=== PATIENT | female | born 1960 | race Caucasian/White ===

== ENCOUNTER 2016-04-16 05:20 | Day surgery (SDC) | payer OTHER ==
[2016-04-15 12:13] VITALS: BMI 33.5
[2016-04-16] MEDS ORDERED: PROPOFOL 20 ML ONE ×2 (09:03)
[2016-04-16] MEDS ORDERED: MIDAZOLAM HCL 2 MG/2 ML SINGLE DOSE VIAL ONE (09:03)
[2016-04-16] MEDS ORDERED: METRONIDAZOLE 500 MG PREMIXED 100 ML IVPB ONE (09:24)
[2016-04-16] MEDS ORDERED: METRONIDAZOLE 500 MG PREMIXED 500 MG/100 ML MG IVPB ONE (09:31)
--- NOTE | 2016-04-16 09:38 | HP ---
History & Physical Update - History History: No Change - Physical Physical: No Change - Assessment Assessment: No Change - Plan Plan: No Change
[2016-04-16] MEDS ORDERED: ONDANSETRON 4 MG/2 ML VIAL ONE (10:00)
[2016-04-16] MEDS ORDERED: DEXAMETHASONE SOD PHOSPHATE 4 MG/1 ML VIAL ONE (10:00)
[2016-04-16] MEDS ORDERED: KETOROLAC TROMETHAMINE 30 MG/1 ML VIAL IVPUSH ONE (10:27)
[2016-04-16] MEDS ORDERED: oxyCODONE HCL 5 MG TABLET PO PRN (10:27)
[2016-04-16] MEDS ORDERED: ONDANSETRON 4 MG/2 ML VIAL IVPUSH PRN (10:27)
[2016-04-16] MEDS ORDERED: LACTATED RINGERS SOLUTION 1,000 ML IV SCH (10:30)
[2016-04-16] MEDS ORDERED: IBUPROFEN 600 MG TABLET (FP) PO PRN (10:46)
[2016-04-16] MEDS ORDERED: IBUPROFEN 800 MG/8 ML IJ IVPB PRN (10:46)
[2016-04-16] MEDS ORDERED: ONDANSETRON 4 MG/2 ML VIAL IVPB PRN (10:46)
--- NOTE | 2016-04-16 10:46 | OP ---
Operative Note - Note: Operative Date: 04/16/16 Pre-Operative Diagnosis: 55 yo P2 with Postmenopausal bleeding, Thick endometrium Operation: Hysteroscopy/Polypectomy Findings: Uterus ~ 6cm, nl Adnexa bl, Anterior wall polyp ~ 1.5cm, and .7cm low uterine segment, anterior wall, both removed Post-Operative Diagnosis: Other Surgeon: Olivia Garcia Anesthesiologist/FOLDER STITCHER OPERATOR: Alexx Rondon Anesthesia: MAC Specimens Removed: 1.Endometrial polyp. 2.Endometrial polyp. 3.Endometrial curretings Estimated Blood Loss (mls): 20 Drains & Tubes with Location: Fluid deficit 0cc Drains, Volume Out (mls): 50 Fluid Volume Replaced (mls): 900 Operative Report Dictated: Yes
[2016-04-16 10:52] VITALS: TEMP 97.4
[2016-04-16] MEDS ORDERED: ELECTROLYTE-148 SOLN 1,000 ML IV SCH (11:00)
[2016-04-16] MEDS ORDERED: KETOROLAC TROMETHAMINE 30 MG/1 ML VIAL ONE (11:07)
[2016-04-16 13:00] VITALS: BP 116/70; PULSE 73
--- NOTE | 2016-04-17 00:23 | OP ---
DATE OF OPERATION: 04/16/2016 PREOPERATIVE DIAGNOSIS: A 55-year-old para 2 with postmenopausal bleeding, thick endometrium. SURGERY: Hysteroscopy, polypectomy, dilation and curettage. FINDINGS: Uterus approximately 6 cm, normal adnexa bilaterally, anterior wall polyp approximately 1.5 cm, and also 0.7 cm lower uterine segment polyp on the anterior wall. Both polyps removed. POSTOPERATIVE DIAGNOSIS: Uterus approximately 6 cm, normal adnexa bilaterally, anterior wall polyp approximately 1.5 cm, and also 0.7 cm lower uterine segment polyp on the anterior wall. Both polyps removed. SURGEON: Olivia Garcia MD ANESTHESIOLOGIST: Alexx Rondon MD ANESTHESIA: MAC. SPECIMENS REMOVED: 1. Endometrial polyp. 2. Endometrial polyp. 3. Endometrial curettings. ESTIMATED BLOOD LOSS: 20 mL. FLUID DEFICIT: Zero. URINE OUTPUT: 50 mL. VOLUME REPLACED: 900 mL. DESCRIPTION OF OPERATIVE PROCEDURE: After ensuring informed consent, the patient was taken to the operating room where she underwent general sedation without difficulty. SCD devices were placed and turned on. She was placed in the dorsal lithotomy position using Vinh stirrups. She was examined and had the above noted findings. Prepped and draped in the usual sterile fashion. Bladder was drained with a red straight catheter. The Morillo speculum was inserted into the vagina. Single-toothed tenaculum was used to grasp the anterior cervical lip. The endocervical canal was serially dilated with Arriaza dilators to gauge 19 to accommodate 5-mm hysteroscope, which was inserted without difficulty, with the above findings. Visualization was achieved using sterile saline as a distention medium. The hysteroscope was removed and polyp forceps were used to remove both polyps. Subsequently, sharp curettage was performed. The tissue was sent to pathology. Hysteroscope was reinserted and revealed no evidence of perforation. All instruments were removed. Hemostasis was observed at the cervical site. The patient was repositioned to the supine position, extubated, and taken to the recovery room in stable condition. Crissy [id number]
--- NOTE | 2016-04-17 10:49 | PATH ---
Surgical Pathology Report Patient Name: DONTRELL REDD [facility]. Rec. #: [id number] /Age/Gender: 1960 (Age: 55) / F Account: [id number] Location: [facility] SURGICAL Taken: 04/16/2016 Received: 04/16/2016 Reported: 04/17/2016 Physicians: Olivia Garcia M.D. Specimen(s) Received A: UTERINE POLYP B: ENDOMETRIAL CURETTINGS C: UTERINE POLYP #2 Clinical History Postmenopausal bleeding Final Diagnosis A. ENDOMETRIUM, POLYPECTOMY: BENIGN ENDOMETRIAL POLYP. INACTIVE TO ATROPHIC ENDOMETRIUM PRESENT IN THE BACKGROUND. NO ENDOMETRIAL HYPERPLASIA OR CARCINOMA IDENTIFIED. B. ENDOMETRIUM, CURETTING: INACTIVE TO ATROPHIC ENDOMETRIUM, AND BENIGN CERVICAL TISSUE. NO ENDOMETRIAL HYPERPLASIA OR CARCINOMA IDENTIFIED. C. ENDOMETRIUM, POLYP #2, POLYPECTOMY: BENIGN ENDOMETRIAL POLYP. NO ENDOMETRIAL HYPERPLASIA OR CARCINOMA IDENTIFIED. Comment: Also see prior specimen [id number]. Electronically Signed Jordon Dahl M.D. Gross Description A. Received in formalin, labeled "uterine polyp," are 2 desir-red, irregular to polypoid portions of soft tissue measuring 0.6 x 0.4 x 0.2 cm and 1.5 x 1.0 x 0.3 cm. The specimens are submitted in toto in one cassette. B. Received in formalin, labeled "endometrial curetting," is a 2.4 x 2.0 x 0.3 cm aggregate of desir-red soft tissue fragments admixed with blood clot. The formalin is filtered and the specimen is entirely submitted in one cassette. C. Received in formalin, labeled "uterine polyps #2," is a 1.3 x 1.0 x 0.3 cm aggregate of desir soft tissue fragments admixed with blood clot. The formalin is filtered and the specimen is entirely submitted in one cassette. DL04/16/2016 saudi04/16/2016
== END 2016-04-16 13:03 | disposition home or self-care (01) ==
LOC: JASU-SURG 05:20
PROVIDERS: ATTEND Obstetrics & Gynecology
PROC: 0UB98ZX Excision of Uterus, Via Natural or Artificial Opening Endoscopic, Diagnostic (ICD-10-PCS; principal; 2016-04-16 09:00)
PROC: 0UDB8ZZ Extraction of Endometrium, Via Natural or Artificial Opening Endoscopic (ICD-10-PCS; 2016-04-16 09:00)
DX: N95.0 Postmenopausal bleeding (principal); N84.0 Polyp of corpus uteri
CPT/HCPCS: 88305-TC; 94760

== ENCOUNTER 2017-02-12 13:43 | Emergency (ER) | payer OTHER ==
[2017-02-12 13:50] VITALS: BMI 32.4
--- NOTE | 2017-02-12 15:08 | PDOC ---
History of Present Illness - General Chief Complaint: Laceration Stated Complaint: L FOOT LACERATION (DIABETIC) Time Seen by Provider: 02/12/17 14:58 - History of Present Illness Initial Comments: 02/13/17 12:28 sent to main ED not seen by Elinor NERI Past History - Past Medical History Allergies/Adverse Reactions: Allergies Allergy/AdvReac Type Severity Reaction Status Date / Time No Known Drug Allergies Allergy Verified 02/12/17 13:50 Home Medications: Ambulatory Orders Amlodipine Besylate [Norvasc -] 5 mg PO DAILY 08/23/13 Glipizide [Glipizide ER] 5 mg PO DAILY 08/23/13 Metformin HCl [Glucophage -] 1,000 mg PO DAILY 08/23/13 Aspirin [Ecotrin] 81 mg PO DAILY 03/13/15 Canagliflozin [Invokana] 100 mg PO DAILY 03/13/15 Gabapentin [Neurontin] 300 mg PO DAILY 03/13/15 Losartan/Hydrochlorothiazide [Losartan-Hctz 100-12.5 mg Tab] 1 each PO DAILY Amoxicillin/Potassium Clav [Augmentin 875-125 Tablet] 1 each PO BID #14 tablet 02/12/17 Anemia: No Asthma: No Cancer: No Cardiac Disorders: No CVA: No COPD: No CHF: No Dementia: No Diabetes: Yes GI Disorders: No Disorders: No HTN: Yes Hypercholesterolemia: No Liver Disease: No Seizures: No Thyroid Disease: No - Surgical History Abdominal Surgery: No Appendectomy: No Cardiac Surgery: No Cholecystectomy: No Lung Surgery: No Neurologic Surgery: No Orthopedic Surgery: No - Suicide/Smoking/Psychosocial Hx Smoking Status: No Smoking History: Never smoked Number of Cigarettes Smoked Daily: 0 Hx Alcohol Use: No Drug/Substance Use Hx: No Substance Use Type: None Hx Substance Use Treatment: No *Physical Exam - Vital Signs Last Vital Signs Temp Pulse Resp BP Pulse Ox 97.8 F 90 20 121/90 98 02/12/17 13:44 02/12/17 13:44 02/12/17 13:44 02/12/17 13:44 02/12/17 13:44 *DC/Admit/Observation/Transfer Diagnosis at time of Disposition: Foot laceration - Discharge Dispostion Disposition: HOME - Prescriptions Prescriptions: Amoxicillin/Potassium Clav [Augmentin 875-125 Tablet] 1 each PO BID #14 tablet - Referrals Referrals: Jocelyne Rhoades MD [Primary Care Provider] - - Patient Instructions Printed Discharge Instructions: DI for Laceration Repair Additional Instructions: Mantenga walters herida limpia y seca por 24 horas. Despus de eso, puede lavarse suavemente con agua y jabn. Si experimenta un empeoramiento del dolor, sangrado, hinchazn, enrojecimiento o cualquier otro sntoma preocupante, regrese a la dinh de urgencias inmediatamente. De lo contrario, regrese a la dinh de emergencias en 7-10 cesar para retirar la sutura. Lucius puede acudir a cualquier atencin urgente o a walters mdico primario para que se los retiren. Por favor tome anna antibiticos abdulkadir lo hemos recetado para usted. - Post Discharge Activity
[2017-02-12] MEDS ORDERED: DIPHTH,PERTUSS(ACELL),TET 0.5 ML DISP.SYRIN IM ONE (16:05)
--- NOTE | 2017-02-12 17:42 | PDOC ---
History of Present Illness <FerminClaude - Last Filed: 02/12/17 19:02> <Brannon Hydecarmencitacharity - Last Filed: 02/12/17 19:14> - General Chief Complaint: Laceration Stated Complaint: L FOOT LACERATION (DIABETIC) Time Seen by Provider: 02/12/17 14:58 Past History <FerminClaude - Last Filed: 02/12/17 19:02> - Past Medical History Anemia: No Asthma: No Cancer: No Cardiac Disorders: No CVA: No COPD: No CHF: No Dementia: No Diabetes: Yes GI Disorders: No Disorders: No HTN: Yes Hypercholesterolemia: No Liver Disease: No Seizures: No Thyroid Disease: No - Surgical History Abdominal Surgery: No Appendectomy: No Cardiac Surgery: No Cholecystectomy: No Lung Surgery: No Neurologic Surgery: No Orthopedic Surgery: No - Suicide/Smoking/Psychosocial Hx Smoking Status: No Smoking History: Never smoked Number of Cigarettes Smoked Daily: 0 Hx Alcohol Use: No Drug/Substance Use Hx: No Substance Use Type: None Hx Substance Use Treatment: No <Mary EllenTerezamickey - Last Filed: 02/12/17 19:14> - Past Medical History Allergies/Adverse Reactions: Allergies Allergy/AdvReac Type Severity Reaction Status Date / Time No Known Drug Allergies Allergy Verified 02/12/17 13:50 Home Medications: Ambulatory Orders Amlodipine Besylate [Norvasc -] 5 mg PO DAILY 08/23/13 Glipizide [Glipizide ER] 5 mg PO DAILY 08/23/13 Metformin HCl [Glucophage -] 1,000 mg PO DAILY 08/23/13 Aspirin [Ecotrin] 81 mg PO DAILY 03/13/15 Canagliflozin [Invokana] 100 mg PO DAILY 03/13/15 Gabapentin [Neurontin] 300 mg PO DAILY 03/13/15 Losartan/Hydrochlorothiazide [Losartan-Hctz 100-12.5 mg Tab] 1 each PO DAILY Amoxicillin/Potassium Clav [Augmentin 875-125 Tablet] 1 each PO BID #14 tablet 02/12/17 *Physical Exam - Vital Signs Last Vital Signs Temp Pulse Resp BP Pulse Ox 98.6 F 80 18 128/74 100 02/12/17 18:36 02/12/17 18:36 02/12/17 18:36 02/12/17 18:36 02/12/17 18:36 <Ou,Claude - Last Filed: 02/12/17 19:02> - Vital Signs Last Vital Signs Temp Pulse Resp BP Pulse Ox 97.8 F 90 20 121/90 98 02/12/17 13:44 02/12/17 13:44 02/12/17 13:44 02/12/17 13:44 02/12/17 13:44 <William Hyde - Last Filed: 02/12/17 19:14> ED Treatment Course - RADIOLOGY Radiology Studies Ordered: Category Date Time Status FOOT-LEFT [RAD] Stat Radiology 02/12/17 16:04 Completed - Medications Given in the ED: ED Medications Discontinued Medications Generic Name Dose Route Start Last Admin Trade Name Freq PRN Reason Stop Dose Admin Diphtheria/Tetanus/Acell Pertussis 0.5 ml 02/12/17 16:05 02/12/17 16:22 Boostrix - IM 02/12/17 16:06 0.5 ml .ONCE ONE Administration <Ou,Claude - Last Filed: 02/12/17 19:02> - Medications Given in the ED: ED Medications Discontinued Medications Generic Name Dose Route Start Last Admin Trade Name Freq PRN Reason Stop Dose Admin Diphtheria/Tetanus/Acell Pertussis 0.5 ml 02/12/17 16:05 02/12/17 16:22 Boostrix - IM 02/12/17 16:06 0.5 ml .ONCE ONE Administration <William Hyde - Last Filed: 02/12/17 19:14> *DC/Admit/Observation/Transfer <Fermin,Claude - Last Filed: 02/12/17 19:02> <William Hyde - Last Filed: 02/12/17 19:14> Diagnosis at time of Disposition: Foot laceration Qualifiers: Encounter type: initial encounter Laterality: left Qualified Code(s): S91.312A - Laceration without foreign body, left foot, initial encounter - Discharge Dispostion Disposition: HOME - Prescriptions Prescriptions: Amoxicillin/Potassium Clav [Augmentin 875-125 Tablet] 1 each PO BID #14 tablet - Referrals Referrals: Jocelyne Rhoades MD [Primary Care Provider] - - Patient Instructions Printed Discharge Instructions: DI for Laceration Repair Additional Instructions: Mantenga walters herida limpia y seca por 24 horas. Despus de eso, puede lavarse suavemente con agua y jabn. Si experimenta un empeoramiento del dolor, sangrado, hinchazn, enrojecimiento o cualquier otro sntoma preocupante, regrese a la dinh de urgencias inmediatamente. De lo contrario, regrese a la dinh de emergencias en 7-10 cesar para retirar la sutura. Lucius puede acudir a cualquier atencin urgente o a walters mdico primario para que se los retiren. Por favor tome anna antibiticos abdulkadir lo hemos recetado para usted. - Post Discharge Activity
[2017-02-12 18:36] VITALS: BP 128/74; PULSE 80; TEMP 98.6
--- NOTE | 2017-02-12 18:57 | PDOC ---
Attending Attestation - Resident Resident Name: William Hyde - ED Attending Attestation I have performed the following: I have examined & evaluated the patient, The case was reviewed & discussed with the resident, I agree w/resident's findings & plan, Exceptions are as noted - HPI HPI: 02/12/17 18:58 56 F with h/o DM presents to ER with laceration to L foot. Pt states that she was washing dishes when a piece of crystal dropped on the floor and shattered, cutting her L foot. Pt denies injury to any other part of her body. Pt does not recall when her last tetanus shot was. - Physicial Exam PE: 02/12/17 19:00 "GENERAL: Awake, alert, and fully oriented, in no acute distress HEAD: No signs of trauma EYES: PERRLA, EOMI, sclera anicteric, conjunctiva clear ENT: Auricles normal inspection, hearing grossly normal, nares patent, oropharynx clear without exudates. Moist mucosa NECK: Nontender, no stepoffs, Normal ROM, supple, no lymphadenopathy, JVD, or masses LUNGS: Breath sounds equal, clear to auscultation bilaterally. No wheezes, and no crackles HEART: Regular rate and rhythm, normal S1 and S2, no murmurs, rubs or gallops ABDOMEN: Soft, nontender, normoactive bowel sounds. No guarding, no rebound. No masses EXTREMITIES: L foot with 3cm laceration to medial aspect, all flexor and extensor tendons intact, wound is clean with no appreciable foreign bodies NEUROLOGICAL: Cranial nerves II through XII intact. 5/5 strength and sensation in all extremities, Normal speech, normal gait - Medical Decision Making 02/12/17 19:01 56 F with laceration to medial aspect of L foot. No evidence of tendon injury. Wound is shallow, not contaminated. - XR to r/o foreign body - Lac repair - Tdap
== END 2017-02-12 19:35 | disposition home or self-care (01) ==
LOC: JERFT 13:43 → JER 13:43
PROC: 3E0234Z Introduction of Serum, Toxoid and Vaccine into Muscle, Percutaneous Approach (ICD-10-PCS; principal; 2017-02-12)
PROC: 0HQNXZZ Repair Left Foot Skin, External Approach (ICD-10-PCS; 2017-02-12)
DX: S91.312A Laceration without foreign body, left foot, initial encounter (principal); W25.XXXA Contact with sharp glass, initial encounter; Y93.G1 Activity, food preparation and clean up; Y92.030 Kitchen in apartment as the place of occurrence of the external cause; Y99.8 Other external cause status; E11.9 Type 2 diabetes mellitus without complications; Z79.84 Long term (current) use of oral hypoglycemic drugs; I10 Essential (primary) hypertension
CPT/HCPCS: 12002-25; 73630-TC-LT; 90471; 90715; 99285-25